=== PATIENT | female | born 1985 | race Caucasian/White ===

== ENCOUNTER 2020-06-28 09:37 | Day surgery (SDC) | payer BC ==
[~2020-06-28] VITALS: Ht 172.7 cm; Wt 78.9 kg
[~2020-06-28 09:37] MED LIST: BENTYL 20 MG TA20 MG PO; CARDIZEM120 MG PO; KLONOPIN0.5 MG PO; L-LYSINE500 M1 PO; LINZESS145 MCG PO; METHOCARBAMOL500 MG PO; MIDODRINE HCL10 MG PO; OMEPRAZOLE20 M1 PO; PHENERGAN25 M1 PO; PROPRANOLOL HCL10 MG PO; PROZAC20 MG PO
[2020-06-28 09:58] LABS: BASOPHILS 0.3 % (0-2); EOSINOPHILS 3.2 % (0-7); HEMOGLOBIN 14.9 g/dL (12-16); IMMATURE GRANULOCYTES 0.1 % (0-5); LYMPHOCYTE ABS# 2.73 10x3/uL (1.18-3.74); LYMPHOCYTES 31.3 % (15-50); MCH 31.7 pg (26.0-34.0); MCHC 34.7 g/dL (31.0-37.0); MCV 91.5 fL (80.0-100.0); MEAN PLATELET VOLUME 10.7 fL (7.4-10.4); MONOCYTES 6.8 % (2-11); NEUTROPHIL ABS# 5.09 10x3/uL (1.56-6.13); NEUTROPHILS 58.3 % (40-80); PLATELET COUNT 282 10x3/uL (130-400); RDW 12.7 % (11.5-14.5); WBC 8.7 10x3/uL (4.8-10.8)
[2020-06-28 10:07] LABS: CALC OSMOLALITY 275 mosm/kg (275-300); CALCIUM 9.1 mg/dL (8.5-10.1); CARBON DIOXIDE 27.1 mmol/L (21.0-32.0); CHLORIDE - SERUM 106 mmol/L (98-107); CREATININE - SERUM 0.8 mg/dL (0.6-1.3); GLUCOSE 92 mg/dL (74-106); POTASSIUM - SERUM 3.8 mmol/L (3.5-5.1); SODIUM 140 mmol/L (136-145); UREA NITROGEN 5 mg/dL (7-18); eGFR NON AFRICAN AMERICAN 87 mL/min (90-120)
[2020-06-28 10:17] LABS: HCG SERUM NEGATIVE (NEGATIVE)
[2020-06-28 10:45] VITALS: BP 115/72; Ht 172.7 cm; Wt 78.9 kg
--- NOTE | 2020-06-28 14:05 | NUR ---
1400 REPORT GIVEN TO MONICA MCGUIRE
--- NOTE | 2020-06-28 15:25 | NUR ---
1430 RECIEVED REPORT FROM MONICA. 1445 INSTRUCTIONS GIVEN IV REMOVED AND PRESSURE HELD. ASSITED WITH GETTING DRESSED. HARDY TO GRAVITY. DENIES NAUSEA AND PAIN EASING, NO VAGINAL BLEEDING
== END 2020-06-28 15:20 | disposition home or self-care (01) ==
LOC: D.OPS 09:37
PROVIDERS: Anesthesiology; ATTEND Obstetrics & Gynecology Maternal & Fetal Medicine
DX: N81.4 Uterovaginal prolapse, unspecified (principal); N39.3 Stress incontinence (female) (male)